=== PATIENT | female | born 1980 | race Caucasian/White ===

== ENCOUNTER 2019-05-07 11:19 | Outpatient (CLI) | payer SELFPAY ==
--- NOTE | 2019-05-07 13:45 | Cat Scan Report ---
NONENHANCED CT SCAN OF THE HEAD: INDICATION / CLINICAL INFORMATION: 38 years Female; 21 WEEKS, R/O STROKE. TECHNIQUE: Routine CT head without contrast. All CT scans at this location are performed using CT dos e reduction for ALARA by means of automated exposure control. COMPARISON: None. FINDINGS: BRAIN / INTRACRANIAL CONTENTS: No acute hemorrhage, mass effect, midline shift, hydrocephalus, or acu te, large territorial infarct. No chronic infarct or focal atrophy. Normal brain volume and ventricul ar/sulcal size for age. No significant white matter abnormality. CRANIOCERVICAL JUNCTION: No significant abnormality. ORBITS: No significant abnormality of visualized orbits. SINUSES / MASTOIDS: No significant abnormality of the visualized paranasal sinuses or mastoid air shanda ls. ADDITIONAL FINDINGS: None. IMPRESSION: No focal parenchymal lesion in the brain Signer Name: Gurpreet Riley MD Signed: 05/07/2019 1:41 PM Workstation Name: [id number]
[2019-05-07] MEDS ORDERED: oxyCODONE /ACETAMINOPHEN 5-325MG TAB PO PRN (14:44)
[2019-05-07] MEDS ORDERED: ACETAMINOPHEN 325 MG TAB PO PRN (15:47)
[2019-05-07] MEDS ORDERED: LACTATED RINGERS 500 ML IV ONE (16:28)
--- NOTE | 2019-05-07 16:46 | Progress Note ---
Subjective Date of service: 05/07/19 Interval history: spoke to Thomas Mcbride earlier and plan to actively consult on the patient came to L and D to see her but staff were not able to locate the patient off medetech suspect b/c of nomenclature I will look at the CT Objective - Vital Sign Vital Signs - 12hr 05/07/19 05/07/19 05/07/19 11:47 11:51 11:52 Temperature 97.8 F Pulse Rate 86 91 H 89 Respiratory 18 Rate Blood Pressure 118/56 Blood Pressure 118/56 [Right] O2 Sat by Pulse 99 99 97 Oximetry 05/07/19 05/07/19 05/07/19 11:57 12:02 12:05 Temperature Pulse Rate 90 94 H 91 H Respiratory Rate Blood Pressure 110/61 Blood Pressure [Right] O2 Sat by Pulse 99 98 Oximetry 05/07/19 05/07/19 05/07/19 12:07 12:12 12:17 Temperature Pulse Rate 96 H 91 H 96 H Respiratory Rate Blood Pressure Blood Pressure [Right] O2 Sat by Pulse 98 98 98 Oximetry 05/07/19 05/07/19 05/07/19 12:22 12:27 12:32 Temperature Pulse Rate 96 H 102 H 89 Respiratory Rate Blood Pressure 121/63 Blood Pressure [Right] O2 Sat by Pulse 98 98 97 Oximetry 05/07/19 05/07/19 05/07/19 12:35 12:37 12:42 Temperature Pulse Rate 90 90 94 H Respiratory Rate Blood Pressure 109/61 Blood Pressure [Right] O2 Sat by Pulse 96 98 Oximetry 05/07/19 05/07/19 05/07/19 12:47 12:49 12:52 Temperature Pulse Rate 99 H 94 H 95 H Respiratory Rate Blood Pressure 117/66 Blood Pressure [Right] O2 Sat by Pulse 95 95 Oximetry 05/07/19 05/07/19 05/07/19 12:53 12:57 13:02 Temperature Pulse Rate 103 H 93 H 92 H Respiratory Rate Blood Pressure Blood Pressure [Right] O2 Sat by Pulse 93 96 96 Oximetry 05/07/19 05/07/19 05/07/19 13:05 13:07 13:33 Temperature Pulse Rate 88 100 H 87 Respiratory Rate Blood Pressure 112/67 120/66 Blood Pressure [Right] O2 Sat by Pulse 95 98 Oximetry 05/07/19 05/07/19 05/07/19 13:38 13:43 13:48 Temperature Pulse Rate 88 95 H 90 Respiratory Rate Blood Pressure Blood Pressure [Right] O2 Sat by Pulse 97 97 96 Oximetry 05/07/19 05/07/19 05/07/19 13:53 13:58 14:03 Temperature Pulse Rate 94 H 88 87 Respiratory Rate Blood Pressure Blood Pressure [Right] O2 Sat by Pulse 98 98 97 Oximetry 05/07/19 05/07/19 05/07/19 14:08 14:13 14:18 Temperature Pulse Rate 86 94 H 87 Respiratory Rate Blood Pressure Blood Pressure [Right] O2 Sat by Pulse 97 97 97 Oximetry 05/07/19 05/07/19 05/07/19 14:23 14:27 14:28 Temperature Pulse Rate 87 86 83 Respiratory Rate Blood Pressure Blood Pressure [Right] O2 Sat by Pulse 98 94 96 Oximetry 05/07/19 05/07/19 05/07/19 14:33 14:38 14:43 Temperature Pulse Rate 82 85 82 Respiratory Rate Blood Pressure Blood Pressure [Right] O2 Sat by Pulse 99 98 97 Oximetry 05/07/19 05/07/19 05/07/19 14:48 14:53 14:58 Temperature Pulse Rate 82 80 81 Respiratory Rate Blood Pressure Blood Pressure [Right] O2 Sat by Pulse 98 98 97 Oximetry 05/07/19 05/07/19 05/07/19 15:03 15:08 15:13 Temperature Pulse Rate 83 79 87 Respiratory Rate Blood Pressure Blood Pressure [Right] O2 Sat by Pulse 97 99 98 Oximetry 05/07/19 05/07/19 05/07/19 15:18 15:23 15:28 Temperature Pulse Rate 88 85 91 H Respiratory 16 Rate Blood Pressure Blood Pressure 120/66 [Right] O2 Sat by Pulse 98 98 98 Oximetry 05/07/19 05/07/19 05/07/19 15:33 15:38 15:43 Temperature Pulse Rate 81 80 80 Respiratory Rate Blood Pressure Blood Pressure [Right] O2 Sat by Pulse 96 97 98 Oximetry 05/07/19 05/07/19 05/07/19 15:48 15:53 15:58 Temperature Pulse Rate 78 83 85 Respiratory Rate Blood Pressure Blood Pressure [Right] O2 Sat by Pulse 98 98 99 Oximetry 05/07/19 05/07/19 05/07/19 16:16 16:21 16:26 Temperature Pulse Rate 95 H 88 95 H Respiratory Rate Blood Pressure Blood Pressure [Right] O2 Sat by Pulse 99 98 96 Oximetry 05/07/19 05/07/19 05/07/19 16:31 16:36 16:41 Temperature Pulse Rate 90 98 H 100 H Respiratory Rate Blood Pressure Blood Pressure [Right] O2 Sat by Pulse 98 98 96 Oximetry
[2019-05-07 17:17] VITALS: BP 105/54
--- NOTE | 2019-05-08 00:25 | Consultation ---
LOCATION: Labor and Delivery treatment room. HISTORY OF PRESENT ILLNESS: A 38-year-old female, , who is [address] Thomas Mcbride. She presented to the Labor and Delivery area with a very complicated history of at least going to 3 emergency rooms over the past several days with associated facial weakness. She went to [facility], was diagnosed as having peripheral Neal's palsy, but then there was some question about the onset of headaches and pupillary problems. The patient was assessed, had a CT scan of the head, which I have reviewed the reports of, but unable to locate the direct source imaging. The report that I have on the CT scan is benign and at this point, the patient will be under observation. It does appear her headaches are beginning to be reduced and I do not have access to the outside records from other treatment facilities, but I did mention to Dr. Mcbride, I will follow up on her repeat examinations to further assess the condition. Obviously, Neal's palsy occurring in is a well-described entity and generally has a benign outcome as it is a complication of . The only issue in this case are the pupillary changes, which I would not expect to be seeing in a pure facial paresis and this will have to be further looked into. JOB# [id number] BRITTANI/BERKLEY
== END 2019-05-07 17:40 | disposition home or self-care (01) ==
LOC: EDBD 11:19 → TRG 11:19
PROVIDERS: ATTEND Specialist
DX: O47.02 False labor before 37 completed weeks of gestation, second trimester (principal); Z3A.21 21 weeks gestation of pregnancy
CPT/HCPCS: 59025; 70450

== ENCOUNTER 2019-10-03 09:12 | Outpatient (CLI) | payer SELFPAY ==
[2019-10-03 10:39] VITALS: BP 118/71
--- NOTE | 2019-10-03 12:24 | Ultrasound Report ---
US OB limited INDICATION / CLINICAL INFORMATION: CHRISTINA. COMPARISON: None available. FINDINGS: Single intrauterine is noted. lie is cephalic. Heart rate is 135. Amniotic fluid inde x is 7.4 cm, at the lower limits of normal. IMPRESSION: 1. Amniotic fluid index is 7.4 cm, approaching the lower limits of normal. 2. lie is currently cephalic. Signer Name: Edmundo López MD Signed: 10/03/2019 12:20 PM Workstation Name: [id number]
== END 2019-10-03 12:25 | disposition home or self-care (01) ==
LOC: TRG 09:12 → APU 09:20 → TRG 12:25
PROVIDERS: ATTEND Obstetrics & Gynecology
DX: O42.90 Premature rupture of membranes, unspecified as to length of time between rupture and onset of labor, unspecified weeks of gestation (principal); Z3A.40 40 weeks gestation of pregnancy
CPT/HCPCS: 59025; 76815

== ENCOUNTER 2019-10-04 06:23 | Inpatient (IN) | payer OTHER ==
[2019-10-04] MEDS ORDERED: ONDANSETRON 4 MG/2 ML INJ IV PRN (09:15)
[2019-10-04] MEDS ORDERED: TERBUTALINE 1 MG/1 ML INJ IVP PRN (09:15)
[2019-10-04] MEDS ORDERED: LIDOCAINE (2%) 20 MG/1 ML VIAL 20 ML MDV INFILTRATI NR (09:15)
[2019-10-04] MEDS ORDERED: TERBUTALINE 1 MG/1 ML INJ SUB-Q PRN (09:15)
[2019-10-04] MEDS ORDERED: BUTORPHANOL 2 MG/1 ML INJ IV PRN (09:15)
[2019-10-04] MEDS ORDERED: ePHEDrine SULFATE 50 MG/1 ML INJ IV PRN ×2 (09:15→14:34)
[2019-10-04 09:54] LABS: Hematocrit 35.3 % (30.3-42.9); Hemoglobin 11.9 gm/dl (10.1-14.3); Mean Corpuscular HGB Conc 34 % (30-34); Mean Corpuscular Volume 87 fl (79-97); Platelet Count 290 K/mm3 (140-440); Red Blood Count 4.06 M/mm3 (3.65-5.03); Red Cell Distribution Width 14.6 % (13.2-15.2)
[2019-10-04] MEDS ORDERED: LACTATED RINGERS 1,000 ML IV SCH (10:00)
[2019-10-04] MEDS ORDERED: OXYTOCIN 20 UNIT/1000ML DRIP 20 UNITS/1,000 ML BAG IV SCH (10:00)
[2019-10-04] MEDS ORDERED: OXYTOCIN DRIP 30 UNITS/500 ML BAG IV SCH (10:00)
[2019-10-04] MEDS ORDERED: NALOXONE 0.4 MG/1 ML INJ IV PRN (10:51)
--- NOTE | 2019-10-04 10:58 | History and Physical Report ---
History of Present Illness Date of examination: 10/04/19 Date of admission: 10/04/19 06:49 Chief complaint: Presents for a scheduled postdates induction of labor History of present illness: Late entry to care at [facility], course co mplicated by Enal's Palsy s/s (resolved); and a abnormal 1hour GTT, followed by a normal 3hour GTT. Past History Past Medical History: kidney stones Past Surgical History: other (Back Sx: 2004) Family/Genetic History: hypertension (father), cancer (Mother: Thyroid Ca) Social history: no significant social history, - Obstetrical History Expected Date of Delivery: 09/27/19 Actual Gestation: 41 Week(s) 0 Day(s) : 3 Para: 2 Hx # Term Pregnancies: 2 Number of Living Children: 2 #1 Infant Gender: Female year: 2,[birth year] Birthweight: 2.92 kg Method of Delivery: Vaginal Gestational age at delivery: 40 Complications: none #2 Gender: Female year: 2,[birth year] Birthweight: 2.92 kg Method of Delivery: Vaginal Gestational age at delivery: 40 Complications: none Medications and Allergies Allergies Allergy/AdvReac Type Severity Reaction Status Date / Time codeine AdvReac Intermediate Dizziness Verified 09/19/19 06:30 Home Medications Medication Instructions Recorded Confirmed Last Taken Type Ferrous Sulfate [Feosol 325 MG tab] 325 mg PO BID #60 tablet 03/25/16 09/19/19 Unknown Rx Hydrocortisone [Anucort-HC SUPPOS] 25 mg RC BID #30 supp.rect 03/25/16 09/19/19 Unknown Rx Ibuprofen [Motrin 600 MG tab] 600 mg PO Q6H #30 tablet 03/25/16 09/19/19 Unknown Rx oxyCODONE /ACETAMINOPHEN [Percocet 2 tab PO Q4H PRN #30 tablet 03/25/16 09/19/19 Unknown Rx 5/325 mg] Active Meds: Active Medications Butorphanol Tartrate (Stadol) 2 mg IV Q2H PRN PRN Reason: Pain , Severe (7-10) Ephedrine Sulfate (Ephedrine Sulfate) 10 mg IV Q2M PRN PRN Reason: Hypotension Oxytocin/Sodium Chloride (Pitocin/Ns 20 Unit/1000ml Drip) 20 units in 1,000 mls @ 125 mls/hr IV DIRECT DELISA Oxytocin/Sodium Chloride (Pitocin/Ns 30 Unit/500ml) 30 units in 500 mls @ 4 mls/hr IV TITR DELISA; Protocol Last Admin: 10/04/19 09:50 Dose: 2 mls/hr, 2 mls/hr Documented by: Lactated Ringer's (Lactated Ringers) 1,000 mls @ 125 mls/hr IV DIRECT DELISA Last Admin: 10/04/19 09:49 Dose: 125 mls/hr Documented by: Lidocaine (Xylocaine 2%) 20 ml INFILTRATI ONCE NR Stop: 10/04/19 11:00 Mineral Oil (Mineral Oil) 30 ml PO QHS PRN PRN Reason: Constipation Ondansetron HCl (Zofran) 4 mg IV Q8H PRN PRN Reason: Nausea And Vomiting Terbutaline Sulfate (Brethine) 0.25 mg SUB-Q ONCE PRN PRN Reason: Hyperstimulation/Hypertonicity Stop: 10/04/19 22:00 Terbutaline Sulfate (Brethine) 0.25 mg IVP ONCE PRN PRN Reason: Hyperstimulation/Hypertonicity Stop: 10/04/19 22:00 Review of Systems All systems: negative - Vital Signs Vital signs: Vital Signs Pulse BP 90 124/71 10/04/19 06:57 10/04/19 06:57 Temp Pulse Resp BP Pulse Ox 87 116/72 99 10/04/19 10:51 10/04/19 08:51 10/04/19 10:51 - Physical Exam Breasts: Positive: normal Cardiovascular: Regular rate Lungs: Positive: Clear to auscultation, Normal air movement Abdomen: Positive: normal appearance, soft, normal bowel sounds Genitourinary (Female): Positive: normal external genitalia, normal perenium Vagina: Positive: normal moisture Uterus: Positive: enlarged Anus/Rectum: Positive: normal perianal skin Extremities: Positive: normal - Obstetrical FHR: category 1 Uterine Contraction Monitor Mode: Internal Cervical Dilatation: 5 (Small amount of blood-tinged fluid upon AROM @ 1044) Cervical Effacement Percentage: 70 station: -2 Uterine Contraction Pattern: Irregular Uterine Tone Measurement Phase: Resting Uterine Contraction Intensity: Mild Results Result Diagrams: 10/04/19 08:10 All other labs normal. Assessment and Plan A: IUP @ 41 Weeks Category I Tracing GBS Negative P: Admit to L&D Per Routine Orders Pitocin Induction AROM IUPC Placed
[2019-10-04] MEDS ORDERED: DEXMEDETOMIDINE 200 MCG/2 ML VIAL IV ONE (11:32)
[2019-10-04] MEDS ORDERED: MINERAL OIL 30 ML ORAL LIQD ONE (12:53)
[2019-10-04] MEDS ORDERED: MAGNESIUM HYDROXIDE (MOM) ORAL LIQD UDC PO PRN (13:40)
[2019-10-04] MEDS ORDERED: WITCH HAZEL/ GLYCERIN PAD TP PRN (13:40)
[2019-10-04] MEDS ORDERED: LANOLIN/ZINC/DIMETHICONE (LANSINOH) 7 GM TP PRN (13:40)
[2019-10-04] MEDS ORDERED: diphenhydrAMINE 25 MG CAP PO PRN (13:40)
--- NOTE | 2019-10-04 13:46 | Procedure Note ---
OB Delivery Note - Delivery Date of Delivery: 10/04/19 (1309) Surgeon: BONNIE ARGUELLES Estimated blood loss: 300cc - Vaginal Delivery presentation: vertex Delivery position: OA Intrapartum events: none Delivery induction: oxytocin Delivery augmentation: rupture of membranes, pitocin Delivery monitor: external FHT, internal uterine Route of delivery: Delivery placenta: spontaneous Episiotomy: none Delivery laceration: 1st degree Delivery repair: vicryl Anesthesia: epidural Delivery comments: of a live 8'0 male over a 1st degree vaginal laceration under epidural anesthesia with Apgars of 8 and 9 at 1309 on 10/04/2019. Infant directly to maternal abd/chest, skin to skin contact. Spontaneous delivery of placenta complete and intact with Jamil side presenting at 1311. Fundus is firm and midline located 4 below the U. Lochia is scant. Vaginal laceration repaired with 2-[address]-1. Delayed cord clamping and cutting; Cord cut by the Father of the Baby. Placenta discarded. - Infant A at 1 minute: 8 at 5 minutes: 9 Gender: Male (8'0)
[2019-10-04] MEDS ORDERED: OXYTOCIN 20 UNIT/1000ML DRIP 20,000 MILLIUNITS/1,000 ML BAG IV ONE (14:33)
[2019-10-04] MEDS ORDERED: NALOXONE 2 MG/2 ML INJ IV PRN (14:34)
--- NOTE | 2019-10-04 14:35 | Anesthesia Consultation ---
Anesthesia Consult and Med Hx Date of service: 10/04/19 - Airway Anesthetic Teeth Evaluation: Good ROM Head & Neck: Adequate Mental/Hyoid Distance: Adequate Mallampati Class: Class II - Pulmonary Exam CTA: Yes - Cardiac Exam Cardiac Exam: RRR - Pre-Operative Health Status ASA Pre-Surgery Classification: ASA2, Emergency Proposed Anesthetic Plan: Epidural - Pulmonary Hx Asthma: No COPD: No Hx Pneumonia: No - Cardiovascular System Hx Hypertension: No - Central Nervous System Hx Seizures: No Hx Back Pain: Yes (h/o lower back surgery) Hx Psychiatric Problems: No - Endocrine Hx Renal Disease: No Hx End Stage Renal Disease: No Hx Hypothyroidism: No Hx Hyperthyroidism: No - Hematic Hx Anemia: Yes Hx Sickle Cell Disease: No - Other Systems Hx Alcohol Use: No
--- NOTE | 2019-10-04 14:36 | Progress Note ---
Labor Epidural - Labor Epidural Start Time: 11:36 Stop Time: 11:40 Performed by:: JACQUELINE CAIN Procedure: Patient is requesting a laboring epidural for laboring pain. Patient IDed, H&P reviewed, all questions and concerns were answered, and consent was signed. Timeout was performed at bedside. Patient in sitting position. Sterile prep and drape was performed. 3 ml of 1% lidocaine skin wheal at L 3- L 4. 18-gauge Touhy epidural needle was advanced to loss of resistance with air technique. Negative CSF negative blood. Epidural catheter advanced to 15 centimeters. Negative aspiration negative test dose. Sterile dressing applied. Patient tolerated procedure.
--- NOTE | 2019-10-04 14:38 | Post Anesthesia Evaluation ---
- Post Anesthesia Evaluation Patient Participated: Yes Airway Patent: Yes Stable Respiratory Function: Yes Nausea/Vomiting: No Temp > 96.8F: Yes Pain Manageable: Yes Adequeate Hydration: Yes Anesthesia Complications: No Block Receding Appropriately: Yes Patient on Ventilator: No
[2019-10-04] MEDS ORDERED: fentaNYL-BUPIV 2 MCG/ML-0.125% 200 MCG/100 ML BAG EPIDURAL SCH (15:00)
[2019-10-04] MEDS: IBUPROFEN 600 MG TAB PO SCH ×2 (17:05→21:42)
[2019-10-04] MEDS ORDERED: MINERAL OIL 30 ML ORAL LIQD PO PRN (22:00)
[2019-10-05] MEDS: HYDROcodone/ACETAMINOPHEN 5-325 MG TAB PO PRN ×2 (00:41→09:52)
[2019-10-05 05:10] LABS: Hemoglobin 9.7 gm/dl (10.1-14.3)
[2019-10-05] MEDS: IBUPROFEN 600 MG TAB PO SCH (05:55)
[2019-10-05] MEDS ORDERED: PRENATAL VIT27-FE FUMARATE-FOLIC ACID VIT TAB PO SCH (10:00)
[2019-10-05] MEDS ORDERED: FERROUS SULFATE 325 MG TAB PO SCH (10:00)
--- NOTE | 2019-10-05 11:45 | Progress Note ---
Assessment and Plan - Patient Problems (1) Status post normal vaginal delivery Current Visit: Yes Status: Acute Plan to address problem: PPD 1 - stable Continue routine orders Discharge to home today Follow-up at [facility] as needed or in 6 weeks for exam (2) Anemia due to blood loss, acute Current Visit: Yes Status: Acute Plan to address problem: Asymptomatic Iron therapy initiated Subjective - Subjective Date of service: 10/05/19 Principal diagnosis: PPD #1; s/p Interval history: see [employer] - H&P and OB Delivery procedure Note Patient reports: appetite normal, voiding normally, pain well controlled, ambulating normally, no dizzy ambulation : doing well, other (breast and bottle feeding) Objective - Vital Signs Latest vital signs: Vital Signs Temp Pulse Resp BP BP Pulse Ox 10/05/19 10:38 97.8 F 87 18 103/50 98 10/05/19 01:11 97.6 F 86 18 107/58 97 10/04/19 20:26 98.0 F 94 H 18 108/58 97 10/04/19 15:57 97.9 F 78 14 109/54 98 10/04/19 14:45 75 104/55 10/04/19 14:16 86 110/55 10/04/19 13:45 76 113/58 10/04/19 13:44 65 L 10/04/19 13:14 94 H 134/68 10/04/19 13:12 157 H 101/59 10/04/19 13:10 122 H 171/66 10/04/19 13:09 162 H 215/123 10/04/19 13:07 126 H 98 10/04/19 13:06 100 H 148/67 10/04/19 13:04 129 H 133/62 10/04/19 13:02 125 H 128/59 99 10/04/19 13:00 133 H 148/74 10/04/19 12:58 105 H 143/63 10/04/19 12:57 106 H 100 10/04/19 12:56 110 H 122/56 10/04/19 12:54 117 H 128/59 10/04/19 12:52 86 130/59 99 10/04/19 12:50 88 119/58 10/04/19 12:48 78 111/53 10/04/19 12:47 87 99 10/04/19 12:46 93 H 119/57 10/04/19 12:44 93 H 123/59 10/04/19 12:42 95 H 114/57 99 10/04/19 12:40 78 108/59 10/04/19 12:38 86 106/69 10/04/19 12:37 82 99 10/04/19 12:36 95 H 101/70 10/04/19 12:34 91 H 104/52 10/04/19 12:32 97 H 118/57 99 10/04/19 12:28 77 98/55 10/04/19 12:27 81 98 10/04/19 12:26 71 111/57 10/04/19 12:24 91 H 94/55 10/04/19 12:22 81 105/57 98 10/04/19 12:20 90 109/55 10/04/19 12:19 78 116/57 10/04/19 12:17 92 H 99 10/04/19 12:14 86 104/54 10/04/19 12:12 79 114/60 99 10/04/19 12:10 87 121/56 10/04/19 12:08 77 106/55 10/04/19 12:07 74 98 10/04/19 12:06 75 109/58 10/04/19 12:04 77 106/55 10/04/19 12:02 82 112/58 99 10/04/19 12:00 75 100/56 10/04/19 11:58 77 107/58 10/04/19 11:57 74 99 10/04/19 11:56 75 106/49 10/04/19 11:54 86 113/56 10/04/19 11:52 82 110/56 99 10/04/19 11:50 83 109/53 10/04/19 11:48 82 114/61 10/04/19 11:47 81 99 10/04/19 11:46 81 116/62 10/04/19 11:44 77 132/56 88 10/04/19 11:42 67 130/59 85 Intake and Output 10/04/19 10/05/19 10/05/19 23:59 07:59 15:59 Intake Total 240 240 Balance 240 240 Intake: Oral 240 240 Other: Total, Intake Amount 240 240 - Exam Cardiovascular: Present: Regular rate Lungs: Present: Clear to auscultation Abdomen: Present: normal appearance, soft Vulva: both: laceration/episiotomy (well-approximated) Uterus: Present: normal, firm, fundal height at umbilicus Extremities: Present: normal Comments: small lochia - Labs Labs: Abnormal lab results 10/05/19 Range/Units 04:31 Hgb 9.7 L (10.1-14.3) gm/dl Hct 29.0 L D (30.3-42.9) %
--- NOTE | 2019-10-05 11:51 | Discharge Summary ---
Providers - Providers Date of Admission: 10/04/19 06:49 Date of discharge: 10/05/19 Attending physician: JOLANTA CUETO MD Primary care physician: JOLANTA CUETO MD Hospitalization Reason for admission: active labor, IUP at term Delivery: Episiotomy: none Laceration: 1st degree Other procedures: none Discharge diagnosis: IUP at term delivered [place] baby: male Hospital course: Uncomplicated Condition at discharge: Stable Disposition: SD-01 TO HOME OR SELFCARE - Discharge Diagnoses (1) Status post normal vaginal delivery Status: Acute (2) Anemia due to blood loss, acute Status: Acute Comment: Asymptomatic Continue Ferrous sulfate 325 mg by mouth twice daily Eat iron-rich foods Plan - Discharge Medications Prescriptions: Ferrous Sulfate [Feosol 325 MG tab] 325 mg PO BID #60 tablet - Provider Discharge Summary Activity: routine, no sex for 6 weeks, no heavy lifting 4 weeks, no strenuous exercise Diet: routine Instructions: routine Additional instructions: [] Smoking cessation referral if applicable(refer to patient education folder for contact #) [] Refer to [facility]'s [facility] Booklet Call your doctor immediately for: * Fever > 100.5 * Heavy vaginal bleeding ( >1 pad per hour) * Severe persistent headache * Shortness of breath * Reddened, hot, painful area to leg or breast * Drainage or odor from incision. * Keep incision clean and dry at all times and follow doctor's instructions regarding bathing/showering - Follow up plan Follow up: JOLATNA CUETO MD [Primary Care Provider] - 6 Weeks (Follow-up at [facility] as needed or in 6 weeks for exam)
[2019-10-05 16:45] VITALS: BP 104/62
== END 2019-10-05 17:05 | disposition home or self-care (01) | DRG 806 ==
LOC: TRG 06:23 → APU 06:27 → TRG 06:48 → LD 06:49 → OB 16:07
PROVIDERS: ADMIT Obstetrics & Gynecology; ATTEND Obstetrics & Gynecology
PROC: 10E0XZZ Delivery of Products of Conception, External Approach (ICD-10-PCS; principal; 2019-10-04)
PROC: 0HQ9XZZ Repair Perineum Skin, External Approach (ICD-10-PCS; 2019-10-04)
PROC: 3E033VJ Introduction of Other Hormone into Peripheral Vein, Percutaneous Approach (ICD-10-PCS; 2019-10-04)
PROC: 3E0R3BZ Introduction of Anesthetic Agent into Spinal Canal, Percutaneous Approach (ICD-10-PCS; 2019-10-04)
PROC: 00HU33Z Insertion of Infusion Device into Spinal Canal, Percutaneous Approach (ICD-10-PCS; 2019-10-04)
PROC: 10907ZC Drainage of Amniotic Fluid, Therapeutic from Products of Conception, Via Natural or Artificial Opening (ICD-10-PCS; 2019-10-04)
PROC: 10H07YZ Insertion of Other Device into Products of Conception, Via Natural or Artificial Opening (ICD-10-PCS; 2019-10-04)
DX: O48.0 Post-term pregnancy (principal); D62 Acute posthemorrhagic anemia; Z37.0 Single live birth; O70.0 First degree perineal laceration during delivery; O99.62 Diseases of the digestive system complicating childbirth; Z3A.41 41 weeks gestation of pregnancy; Z87.442 Personal history of urinary calculi; Z82.49 Family history of ischemic heart disease and other diseases of the circulatory system; Z80.8 Family history of malignant neoplasm of other organs or systems; Z88.5 Allergy status to narcotic agent; Z79.899 Other long term (current) drug therapy
CPT/HCPCS: 36415; 85014; 85018; 85027; 86850; 86900; 86901; G0378; J2590; J3490; J7120